=== PATIENT | male | born 1950 | race African-American/Black ===

== ENCOUNTER 2018-10-11 12:51 | Emergency (ER) | payer SELFPAY ==
[2018-10-11 13:11] LABS: ADD MAN DIFF? NO
[2018-10-11] MEDS: LABETALOL HCL 20MG INJ IV (13:13)
[2018-10-11 13:14] LABS: WHITE BLOOD COUNT 4.2 10^3/ul (4.8-10.8)
[2018-10-11] MEDS: PHENYLephrine 1% 15 ML NAS SPRAY NASAL (13:14)
[2018-10-11 13:15] LABS: BASOPHILS % 0.7 % (0.0-2.0); EOSINOPHILS # 0.1 10^3/ul (0.0-0.5); EOSINOPHILS % 1.4 % (0.0-7.0); HEMOGLOBIN 12.8 g/dl (14.0-18.0); LYMPHOCYTES # 1.5 10^3/ul (0.8-2.9); LYMPHOCYTES % 35.1 % (15.0-51.0); MEAN CORPUSCULAR HEMOGLOBIN 31.4 pg (29.0-33.0); MEAN CORPUSCULAR HGB CONC 32.8 g/dl (32.0-37.0); MEAN CORPUSCULAR VOLUME 95.6 fl (82.0-101.0); MEAN PLATELET VOLUME 10.1 fl (7.4-10.4); MONOCYTE # 0.6 10^3/ul (0.3-0.9); NEUTROPHIL # 2.1 10^3/ul (1.6-7.5); NEUTROPHILS % 49.6 % (39.0-77.0); PLATELET COUNT 195 10^3/UL (140-415); RED BLOOD COUNT 4.08 10^6/ul (4.70-6.10); RED CELL DISTRIBUTION WIDTH 12.6 % (11.5-14.5)
== END 2018-10-11 14:15 | disposition home or self-care (01) ==
LOC: E/R 12:51
DX: R04.0 Epistaxis (principal); I10 Essential (primary) hypertension
CPT/HCPCS: 85025; 96374; 99284-25